=== PATIENT | male | born 1995 | race Hispanic/Latino ===

== ENCOUNTER 2019-03-01 07:24 | Outpatient (CLI) | payer OTHER ==
--- NOTE | 2019-03-01 09:23 | CT ---
CT Abdomen Pelvis W WO con History: C [age] testicular cancer Comparison: None. Findings: Lung bases are clear. No pericardial effusion. No nephroureterolithiasis or hydroureteronephrosis. No secondary evidence of a recently passed. The aortoiliac contour is normal. No free intraperitoneal gas or fluid. No dilated loops of large or small bowel. On the delayed phase of contrast the renal calyces are sharp. No filling defects within the ureters. No acute osseous abnormality. No suspicious osteolytic or osteoblastic lesions. Right os acetabulum. Appendix is visualized and is normal. No retroperitoneal periaortic adenopathy. No pelvic adenopathy. No external iliac or internal iliac adenopathy. Likely reactive left superficial inguinal lymph nodes. Impression: No evidence for metastatic disease within the abdomen or pelvis.
== END 2019-03-01 07:25 | disposition home or self-care (01) ==
LOC: BICCT 07:24
PROVIDERS: ATTEND Urology
DX: C62.90 Malignant neoplasm of unspecified testis, unspecified whether descended or undescended (principal)
CPT/HCPCS: 74178

== ENCOUNTER 2019-03-08 15:35 | Outpatient (CLI) | payer SELFPAY ==
--- NOTE | 2019-03-08 20:05 | RAD ---
RADIOGRAPH CHEST 2 VIEWS: DATE: 03/08/2019 HISTORY: 23-year-old male with testicular cancer. Evaluate for metastatic disease. FINDINGS: The lungs are clear. The cardiomediastinal silhouette and hilar shadows appear normal. There is no pl eural effusion or pneumothorax. No suspicious pulmonary nodule is identified, but CT would be more sensitive than plain radiograph. IMPRESSION: No evidence of active disease.
== END 2019-03-08 15:36 | disposition home or self-care (01) ==
LOC: BICRAD 15:35
PROVIDERS: ATTEND Internal Medicine Hematology & Oncology
DX: C62.90 Malignant neoplasm of unspecified testis, unspecified whether descended or undescended (principal)
CPT/HCPCS: 71046

== ENCOUNTER 2019-03-18 08:10 | Day surgery (SDC) | payer SELFPAY ==
[2019-03-18] MEDS ORDERED: Sodium Chloride 0.9% 20 ML ONE (08:23)
[2019-03-18] MEDS ORDERED: MANNITOL IV SCH (09:00)
[2019-03-18] MEDS ORDERED: SODIUM CHLORIDE 0.9% IV SCH (09:00)
[2019-03-18] MEDS ORDERED: BLEOMYCIN SULFATE IVPB SCH ×2 (09:00→09:30)
[2019-03-18] MEDS ORDERED: SODIUM CHLORIDE 0.9% IVPB SCH ×3 (09:00→12:00)
[2019-03-18] MEDS ORDERED: PALONOSETRON HCL 0.05 MG/ML 5 ML VIAL IVP SCH (09:00)
[2019-03-18] MEDS ORDERED: CISPLATIN IV SCH (09:00)
[2019-03-18] MEDS ORDERED: Dexamethasone 10 MG/ML VIAL SLOW IVP SCH (09:00)
[2019-03-18 09:24] VITALS: BP 137/79; TEMP 98.3
[2019-03-18] MEDS ORDERED: ETOPOSIDE IVPB SCH (12:00)
[2019-03-19] MEDS ORDERED: ETOPOSIDE IVPB SCH (12:00)
[2019-03-19] MEDS ORDERED: SODIUM CHLORIDE 0.9% IVPB SCH (12:00)
[2019-03-20] MEDS ORDERED: SODIUM CHLORIDE 0.9% IVPB SCH (12:00)
[2019-03-20] MEDS ORDERED: ETOPOSIDE IVPB SCH (12:00)
== END 2019-03-18 15:12 | disposition home or self-care (01) ==
LOC: ONC/OP 08:10
PROVIDERS: ATTEND Internal Medicine Hematology & Oncology
DX: Z51.11 Encounter for antineoplastic chemotherapy (principal); C62.12 Malignant neoplasm of descended left testis
CPT/HCPCS: 96361; 96366; 96375; 96411; 96413; 96415; 96416; 96417; J1100; J1453; J2469; J3490; J7050; J9040

== ENCOUNTER 2019-03-19 09:33 | Day surgery (SDC) | payer SELFPAY ==
[~2019-03-19 09:33] MED LIST: CISPLATIN IV SCH; Dexamethasone Sod Phosphate 10 MG, Ondansetron 2MG/ML MDV 15 MG in Sodium Chloride 0.9%... IVPB SCH; ETOPOSIDE IVPB SCH; MANNITOL IV SCH; SODIUM CHLORIDE 0.9% IV SCH; SODIUM CHLORIDE 0.9% IVPB SCH; Sodium Chloride 0.9% 500 ML IVPB SCH
[2019-03-19 09:51] VITALS: BP 140/62; TEMP 98.7
== END 2019-03-19 13:41 | disposition home or self-care (01) ==
LOC: ONC/OP 09:33
PROVIDERS: ATTEND Internal Medicine Hematology & Oncology
DX: Z51.11 Encounter for antineoplastic chemotherapy (principal); C62.12 Malignant neoplasm of descended left testis
CPT/HCPCS: 96361; 96367; 96375; 96413; 96417; J1100; J2150; J2405; J7050; J9060; J9181

== ENCOUNTER 2019-03-20 08:55 | Day surgery (SDC) | payer SELFPAY ==
[2019-03-20] MEDS ORDERED: Sodium Chloride 0.9% 20 ML ONE (08:58)
== END 2019-03-20 14:12 | disposition home or self-care (01) ==
LOC: ONC/OP 08:55
PROVIDERS: ATTEND Internal Medicine Hematology & Oncology
DX: Z51.11 Encounter for antineoplastic chemotherapy (principal); C62.12 Malignant neoplasm of descended left testis
CPT/HCPCS: 96361; 96366; 96367; 96375; 96413; 96417; J1100; J2150; J2405; J7050; J9060; J9181

== ENCOUNTER 2019-03-21 09:19 | Day surgery (SDC) | payer SELFPAY ==
[2019-03-21] MEDS ORDERED: Sodium Chloride 0.9% 20 ML ONE (09:22)
[2019-03-21 09:52] VITALS: TEMP 98
== END 2019-03-21 13:45 | disposition home or self-care (01) ==
LOC: ONC/OP 09:19
PROVIDERS: ATTEND Internal Medicine Hematology & Oncology
DX: Z51.11 Encounter for antineoplastic chemotherapy (principal); C62.12 Malignant neoplasm of descended left testis
CPT/HCPCS: 96361; 96366; 96367; 96375; 96413; 96417; J1100; J2150; J2405; J7050; J9060; J9181

== ENCOUNTER 2019-03-22 09:06 | Day surgery (SDC) | payer SELFPAY ==
[~2019-03-22 09:06] MED LIST changes: -Dexamethasone Sod Phosphate 10 MG, Ondansetron 2MG/ML MDV 15 MG in Sodium Chloride 0.9%... IVPB SCH; +Palonosetron HCl 0.25 MG in Sodium Chloride 0.9% 50 ML IVPB SCH
[2019-03-22] MEDS ORDERED: Sodium Chloride 0.9% 20 ML ONE (09:11)
[2019-03-22 10:17] VITALS: BP 122/58; TEMP 98.4
== END 2019-03-22 14:08 | disposition home or self-care (01) ==
LOC: ONC/OP 09:06
PROVIDERS: ATTEND Internal Medicine Hematology & Oncology
DX: Z51.11 Encounter for antineoplastic chemotherapy (principal); C62.12 Malignant neoplasm of descended left testis
CPT/HCPCS: 96361; 96366; 96367; 96375; 96413; 96417; J1100; J2150; J2469; J7050; J9060; J9181

== ENCOUNTER 2019-03-25 10:05 | Day surgery (SDC) | payer SELFPAY ==
[~2019-03-25 10:05] MED LIST changes: +Bleomycin Sulfate 30 UNIT in Sodium Chloride 0.9% 50 ML IVPB SCH; -CISPLATIN IV SCH; +Dexamethasone 10 MG in Sodium Chloride 0.9% 50 ML IVPB SCH; -ETOPOSIDE IVPB SCH; -MANNITOL IV SCH; -Palonosetron HCl 0.25 MG in Sodium Chloride 0.9% 50 ML IVPB SCH; -SODIUM CHLORIDE 0.9% IV SCH; -SODIUM CHLORIDE 0.9% IVPB SCH; -Sodium Chloride 0.9% 500 ML IVPB SCH
[2019-03-25] MEDS ORDERED: Sodium Chloride 0.9% 20 ML ONE (10:22)
[2019-03-25 10:47] VITALS: BP 128/67; TEMP 98.6
== END 2019-03-25 12:25 | disposition home or self-care (01) ==
LOC: ONC/OP 10:05
PROVIDERS: ATTEND Internal Medicine Hematology & Oncology
DX: Z51.11 Encounter for antineoplastic chemotherapy (principal); C62.12 Malignant neoplasm of descended left testis
CPT/HCPCS: 96375; 96409; J1100; J9040

== ENCOUNTER 2019-04-01 12:07 | Day surgery (SDC) | payer OTHER, SELFPAY ==
[2019-04-01] MEDS ORDERED: Sodium Chloride 0.9% 20 ML ONE (12:15)
[2019-04-01 13:09] VITALS: BP 131/75; TEMP 98.4
== END 2019-04-01 13:32 | disposition home or self-care (01) ==
LOC: ONC/OP 12:07
PROVIDERS: ATTEND Internal Medicine Hematology & Oncology
DX: Z51.11 Encounter for antineoplastic chemotherapy (principal); C62.12 Malignant neoplasm of descended left testis
CPT/HCPCS: 96375; 96413; J1100; J9040

== ENCOUNTER 2020-03-30 15:23 | Outpatient (CLI) | payer OTHER ==
[~2020-03-30 15:23] MED LIST changes: -Bleomycin Sulfate 30 UNIT in Sodium Chloride 0.9% 50 ML IVPB SCH; -Dexamethasone 10 MG in Sodium Chloride 0.9% 50 ML IVPB SCH; +Iopamidol 370 76% 100 ML VIAL ONE
--- NOTE | 2020-03-30 15:58 | CT ---
CT Abdomen Pelvis W Con History: Neoplasm of the testicles Comparison: Abdomen pelvis CT 2019 Findings: Lung bases are without suspicious pulmonary nodule. No pericardial effusion. The liver, gallbladder, spleen, pancreas are unremarkable. No abnormal renal enhancing mass. No retro peritoneal periaortic adenopathy. No dilated loops of large or small bowel. The appendix is felt to be visualized and appears normal. The aortoiliac contour is normal. No suspicious osteolytic or osteoblastic lesions. Subtle ossification of both acetabular labrum. Mild bilateral gynecomastia. Impression: Normal examination of the abdomen and pelvis. No evidence for metastatic disease.
--- NOTE | 2020-03-30 16:03 | RAD ---
EXAM: Chest PA and lateral: HISTORY: Testicular cancer x1 year. Evaluate for pulmonary metastases COMPARISON: 03/08/2019 FINDINGS: Heart: Normal cardiac silhouette Aorta: Unremarkable Pulmonary vessels: Normal Costophrenic angles: Costophrenic angles are clear. Lungs: No consolidation or masses. Pneumothorax: No pneumothorax Osseous structures: No osseous abnormalities IMPRESSION: No acute cardiopulmonary process.
== END 2020-03-30 15:24 | disposition home or self-care (01) ==
LOC: BICCT 15:23
PROVIDERS: ATTEND Internal Medicine Hematology & Oncology
DX: C62.12 Malignant neoplasm of descended left testis (principal)
CPT/HCPCS: 71046; 74177; Q9967

== ENCOUNTER 2022-07-13 16:01 | Outpatient (CLI) | payer BC | END 2022-07-13 16:02 | disposition home or self-care (01) | LOC: BICRAD 16:01 | PROVIDERS: ATTEND Internal Medicine Hematology & Oncology | DX: C62.12 Malignant neoplasm of descended left testis (principal) | CPT/HCPCS: 71046 ==

== ENCOUNTER 2022-07-28 10:26 | Outpatient (CLI) | payer BC | END 2022-07-28 10:27 | disposition home or self-care (01) | LOC: BICULT 10:26 | PROVIDERS: ATTEND Internal Medicine Hematology & Oncology | DX: N63.41 Unspecified lump in right breast, subareolar (principal) ==